=== PATIENT | male | born 1960 | race African-American/Black ===

== ENCOUNTER 2021-11-04 06:26 | Emergency (ER) | payer MEDICAID ==
[~2021-11-04] VITALS: Ht 170.2 cm; Wt 80.0 kg
[2021-11-04 08:09] LABS: HEMATOCRIT. 30.7 % (42.0-52.0); HEMOGLOBIN. 10.5 g/dL (14.0-18.0); MEAN CORPUSCULAR HEMOGLOBIN 31.2 pg (28.0-32.0); MEAN CORPUSCULAR VOLUME 91.2 fL (80.0-94.0); MEAN PLATELET VOLUME 7.2 fl (7.4-10.4); PLATELET 205 x1000/uL (130-400); RED BLOOD CELL COUNT 3.37 mill/uL (4.7-6.1); RED CELL DISTRIBUTION WIDTH 16.3 % (11.6-14.6)
[2021-11-04 08:16] LABS: CHLORIDE 100 mEq/L (98-107)
[2021-11-04 08:22] LABS: ETHANOL BLOOD < 10 mg/dL
[2021-11-04 09:07] LABS: ATYPICAL LYMPHOCYTES 7; PLATELET ESTIMATE NORMAL
[2021-11-04 09:39] LABS: CLARITY URINE CLEAR (CLEAR); COLOR URINE YELLOW (YELLOW); KETONES URINE NEGATIVE (NEGATIVE); LEUKOCYTE ESTERASE URINE NEGATIVE (NEGATIVE); NITRITE URINE NEGATIVE (NEGATIVE); OCCULT BLOOD URINE NEGATIVE (NEGATIVE); PH URINE 6.5 (4.5-8.0); PROTEIN URINE TRACE (NEGATIVE); SPECIFIC GRAVITY URINE 1.005 (1.005-1.030); UROBILINOGEN URINE 0.2 E.U./dL (0.2-1.0)
[2021-11-04 10:19] LABS: *AMPHETAMINES SCREEN URINE NEGATIVE (NEGATIVE); *BARBITURATES SCREEN URINE NEGATIVE (NEGATIVE); *BENZODIAZEPINES SCREEN URINE NEGATIVE (NEGATIVE); *COCAINE SCREEN URINE NEGATIVE (NEGATIVE); METHADONE URINE SCREEN NEGATIVE (NEGATIVE); OPIATES URINE SCREEN NEGATIVE (NEGATIVE)
[2021-11-04 10:20] LABS: CANNABINOID URINE SCREEN PRESUMTIVE POSITIVE (NEGATIVE); PHENCYCLIDINE URINE SCREEN NEGATIVE (NEGATIVE)
[2021-11-04 12:41] VITALS: BP 128/76
[2021-11-04] MEDS ORDERED: FURO-152 MT (12:50)
[2021-11-04] MEDS ORDERED: ASPI-1497 MT (12:50)
== END 2021-11-04 13:04 | disposition home or self-care (01) ==
LOC: ER 06:49
DX: I48.91 Unspecified atrial fibrillation (principal); I50.9 Heart failure, unspecified; E11.9 Type 2 diabetes mellitus without complications
CPT/HCPCS: 36415; 71045; 80053; 80305; 80320; 81003; 83880; 84484; 85025; 93005; 99285; G0480